=== PATIENT | female | born 1955 | race Caucasian/White ===

== ENCOUNTER → 2018-05-23 14:57 | Outpatient (CLI) | payer BC, SELFPAY ==
--- NOTE | 2018-05-23 15:02 | MM_ITS ---
MM Dig screening mamm BI w/CAD ORDERING PHYSICIAN : Jennie Morris MD PATIENT AGE: 62 years GENDER: Female COMPARISON: April 2016, of April 2015, 2016 also March 20142011 INDICATION: ITS.REASON: SCREENING no hormones no new complaints Previous stereotactic biopsy left breast Family history. Maternal aunt with breast cancer. TECHNIQUE: Standard CC and MLO images were obtained. R2 CAD reviewed. FINDINGS: Generalized fatty replacement. Low-density breast bilaterally with no significant new findings. No dominant mass nor suspicious calcifications either breast. CAD computer review highlights no areas of concern either. . RIGHT BREAST:Stable. No new areas of concern LEFT BREAST:Stable. Subtle density towards superior breast and upper outer quadrant, similar to previous studies dating back to, 2011 2013 . There is been a previous percutaneous biopsy at the left breast with small residual MicroMark or at the deep medial left breast. No new findings here. IMPRESSION: Stable bilateral mammogram with no new areas of concern. Bilateral follow-up in one year recommended BI-RADS Category: 2 Benign Finding(s) RECOMMENDED FOLLOW-UP: 1YR 1 YEAR FOLLOW-UP (A letter has been sent to the patient regarding results of the study.)
== END ==
PROVIDERS: PCP Family Medicine; Visit Provider Family Medicine
DX: Z12.31 Encounter for screening mammogram for malignant neoplasm of breast (principal)
CPT/HCPCS: 77067

== ENCOUNTER → 2019-05-01 14:50 | Outpatient (CLI) | payer MEDICARE, SELFPAY ==
--- NOTE | 2019-05-01 14:55 | MM_ITS ---
PROCEDURE: MM DIG SCREENING MAMM BI W/CAD CLINICAL INDICATION: SCREENING There is a history of breast cancer in the patient's maternal aunt. There has been previous biopsy left breast for benign disease. COMPARISON: [facility] DIG MAMM-SCREEN LAI from 04/12/2016 [facility] DIG MAMM-SCREEN LAI W/CAD from 05/03/2017 [facility] MM Dig screening mamm BI w/CAD from 05/23/2018 TECHNIQUE: Standard CC and MLO images were obtained. R2 CAD reviewed. FINDINGS: Scattered fibroglandular densities are seen in the central portions of both breasts. There is a biopsy clip seen within the central portion left breast. There is a benign-appearing microcalcification right breast. There is no suspicious lesion and no suspicious microcalcifications. IMPRESSION: Fibrofatty parenchyma with no suspicious lesions seen BI-RAD Category: 2 Benign Finding(s) FOLLOW-UP: 1YR 1 Year Follow-up (A letter has been sent to the patient regarding results of the study.) Dictated by: Dr. Lev Loya MD 05/02/2019 10:[address] Lev Loya MD in [place] 05/02/2019 10:16
== END ==
PROVIDERS: PCP Family Medicine; Visit Provider Family Medicine
DX: Z12.31 Encounter for screening mammogram for malignant neoplasm of breast (principal)
CPT/HCPCS: 77067

== ENCOUNTER → 2020-05-15 16:36 | Outpatient (CLI) | payer MEDICARE, SELFPAY ==
--- NOTE | 2020-05-15 16:41 | MM_ITS ---
PROCEDURE: MM DIG SCREENING MAMM BI W/CAD Referring Doctor: Jennie Morris Patient Age:64Y CLINICAL INDICATION: SCREENING 64-year-old. No new complaints. previous percutaneous stereotactic biopsy a left breast. Family history: Maternal aunt with breast cancer COMPARISON: MG [facility] DIG MAMM-SCREEN LAI from 03/15/2013 MG [facility] DIG MAMM-SCREEN LAI from 03/21/2014 MG [facility] DIG MAMM-SCREEN LAI from 04/10/2015 MG [facility] DIG MAMM-SCREEN LAI from 04/12/2016 MG [facility] DIG MAMM-SCREEN LAI W/CAD from 05/03/2017 MG [facility] MM Dig screening mamm BI w/CAD from 05/23/2018 MG MM DIG SCREENING MAMM BI W/CAD from 05/01/2019 TECHNIQUE: Standard CC and MLO images were obtained. R2 CAD reviewed. Bilateral digital breast tomosynthesis included. Additional nipple profile view left breast FINDINGS: Moderate breast density. Areas of mild asymmetry are similar to previous studies with no new suspicious or dominant mass either breast. CAD highlights no areas of significant concern. Bilateral follow-up 1 year recommended Left breast. No new areas of significant concern Metallic marker at the medial breast from previous stereotactic biopsy. . Minor asymmetric areas of density dissipate on the tomosynthesis images and/or appear stable Would recommend and encourage bilateral follow-up in 1 year. Right breast no new areas of significant concern IMPRESSION: No new areas of concern. Moderate density breast with scattered areas of minimal asymmetry of similar to previous studies Previous percutaneous biopsy left breast noted . Recommend and would encourage bilateral follow-up in 1 year. BI-RAD Category: 2 Benign Finding(s) FOLLOW-UP: 1YR 1 Year Follow-up (A letter has been sent to the patient regarding results of the study.) Dictated by: Johnson Stephens MD 05/19/2020 00:00 Johnson Stephens MD in [place] 05/19/2020 00:00
== END ==
PROVIDERS: PCP Family Medicine; Visit Provider Family Medicine
DX: Z12.31 Encounter for screening mammogram for malignant neoplasm of breast (principal)
CPT/HCPCS: 77063; 77067

== ENCOUNTER → 2021-05-20 16:23 | Outpatient (CLI) | payer MEDICARE, SELFPAY ==
--- NOTE | 2021-05-20 16:25 | MM_ITS ---
PROCEDURE INFORMATION: Exam: MG Bilateral Screening 3D Mammography Exam date and time: 05/20/2021 4:25 PM Age: 65 years old Clinical indication: Encounter for screening mammogram for malignant neoplasm of breast . Family history of breast carcinoma. TECHNIQUE: Imaging protocol: Bilateral screening tomosynthesis and 2D mammography including computer-aided detection (CAD) when performed. COMPARISON: 05/15/2020, 05/01/2019, 05/23/2018 FINDINGS: MAMMOGRAPHY: Breast composition: There are scattered areas of fibroglandular density. Mass: No suspicious masses. Architectural distortion: No suspicious distortion. Calcifications: No suspicious calcifications. Asymmetric density: None. Skin thickening: None. Axillary adenopathy: None. IMPRESSION: No mammographic evidence of malignancy. Annual screening is recommended unless otherwise clinically indicated. ASSESSMENT: BI-RADS Category 1: Negative
== END ==
PROVIDERS: PCP Family Medicine; Visit Provider Family Medicine
DX: Z12.31 Encounter for screening mammogram for malignant neoplasm of breast (principal)
CPT/HCPCS: 77063; 77067

== ENCOUNTER → 2021-08-27 14:23 | Outpatient (CLI) | payer MEDICARE, SELFPAY ==
--- NOTE | 2021-08-27 14:28 | XR_ITS ---
FINAL REPORT TECHNIQUE: Chest PA & Lateral CLINICAL HISTORY: POST COVID, soa, smoker FINDINGS: 2 views of the chest were performed. The heart size is normal. The mediastinum is within normal limits. There is a calcified granuloma in the right mid lung. There is no acute cardiopulmonary process. There are no pleural effusions. There is no pneumothorax. The bony thorax appears intact. IMPRESSION: No acute cardiopulmonary process. Reviewed, Interpreted and Dictated by Tapan Hou MD Transcribed by Arnaldo Marshall Authenticated by Tapan Hou MD on 08/27/2021 03:58:43 PM [facility]
== END ==
PROVIDERS: PCP Family Medicine; Visit Provider Family Medicine
DX: U09.9 Post COVID-19 condition, unspecified (principal); R06.02 Shortness of breath; Z72.0 Tobacco use
CPT/HCPCS: 71046

== ENCOUNTER → 2022-05-24 15:53 | Outpatient (CLI) | payer MEDICARE, SELFPAY ==
--- NOTE | 2022-05-24 15:58 | MM_ITS ---
PROCEDURE INFORMATION: Exam: MG Bilateral Screening 3D Mammography Exam date and time: 05/24/2022 3:53 PM Age: 66 years old Clinical indication: Screening examination TECHNIQUE: Imaging protocol: Bilateral Screening tomosynthesis and 2D mammography including computer-aided detection (CAD) when performed. COMPARISON: 1. MG MM DIG SCREENING MAMM BI W/CAD 05/20/2021 4:23 PM 2. MG MM DIG SCREENING MAMM BI W/CAD 05/15/2020 4:51 PM FINDINGS: MAMMOGRAPHY: Breast composition: There are scattered areas of fibroglandular density. Mass: None. Architectural distortion: None. Calcifications: No suspicious calcifications. Asymmetric density: None. Skin thickening: None. Axillary adenopathy: None. IMPRESSION: No mammographic evidence of malignancy. Annual screening is recommended unless otherwise clinically indicated. ASSESSMENT: BI-RADS Category 1: Negative
== END ==
PROVIDERS: PCP Family Medicine; Visit Provider Family Medicine
DX: Z12.31 Encounter for screening mammogram for malignant neoplasm of breast (principal)
CPT/HCPCS: 77063; 77067

== ENCOUNTER 2024-08-22 18:12 | Observation (INO) | payer MEDICARE, SELFPAY ==
[2024-08-22 18:15] VITALS: BP 98/60; PULSE 90; RESP 18; TEMP 36.1; O2SAT 97; BMI 14.9
[2024-08-22 18:23] LABS: Coronavirus 19, PCR Not Detected (NotDetected); Influenza A, PCR Not Detected (NotDetected); Influenza B, PCR Not Detected (NotDetected)
--- NOTE | 2024-08-22 19:02 | XR_ITS ---
PROCEDURE INFORMATION: Exam: XR Complete Acute Abdomen Series Including Chest Exam date and time: 08/22/2024 7:12 PM Age: 69 years old Clinical indication: Abdominal pain; Additional info: Abdominal pain, n/v/d TECHNIQUE: Imaging protocol: Radiologic exam. Complete acute abdomen series, including 2 or more views of the abdomen and a single view chest. COMPARISON: CR XR CHEST 2V 08/27/2021 2:52 PM FINDINGS: Lungs: Emphysematous changes. No acute airspace process. Calcified granuloma the right lung base. Pleural spaces: Normal. No pleural effusions. No pneumothorax. Heart/Mediastinum: Normal. No cardiomegaly. Gastrointestinal tract: Normal. No bowel dilation. Intraperitoneal space: Normal. No free air. Organs: Cholecystectomy clips. Bones/joints: Normal. No acute fracture. Soft tissues: Normal. IMPRESSION: No acute findings.
[2024-08-22] MEDS: ONDANSETRON 4MG ODT 4 MG SL (19:15)
[2024-08-22 19:19] LABS: Basophils % 0.8 % (0.1-2.0); Eosinophils % 0.3 % (0.1-12.0); Hematocrit 43.1 % (37.0-47.0); Hemoglobin 14.1 g/dL (12.2-16.2); Lymphocytes # 0.9 K/mm3 (0.7-4.5); Lymphocytes % 25.4 % (10-50); Mean Corpuscular HGB Conc 32.7 g/dL (31.8-35.4); Mean Corpuscular Hemoglobin 28.7 pg (27.0-31.2); Mean Corpuscular Volume 87.6 fl (81-99); Mean Platelet Volume 10.8 fl (7.4-10.4); Monocytes # 0.7 K/mm3 (0.1-1.0); Monocytes % 18.2 % (1.7-9.3); Platelet Count 170 K/mm3 (142-424); Red Blood Count 4.92 M/mm3 (4.20-5.40); White Blood Count 3.6 K/mm3 (4.8-10.8)
[2024-08-22 19:28] LABS: Albumin Level 4.7 g/dl (3.5-5.0); Chloride 100 mmol/L (98-107); Sodium 137 mmol/L (136-145)
[2024-08-22 19:29] LABS: Potassium 3.7 mmoL/L (3.5-5.1)
[2024-08-22 19:30] LABS: Lipase 192 U/L (23-300)
[2024-08-22 19:31] LABS: Alanine Aminotransferase 29 U/L (12-78); Anion Gap 15.7 mEq/L (5-15); Aspartate Amino Transferase 59 U/L (14-36); Blood Urea Nitrogen 25 mg/dl (7-17); Carbon Dioxide 25 mmol/L (22.0-30.0); Creatinine Clearance Estimated 27 mL/min (50-200); Estimated Glomerular Filt Rate 71 ml/min (>60); GFR (African American) 86 ML/MIN (>60)
[2024-08-22 19:32] LABS: Albumin/Globulin Ratio 1.9 (1.1-1.8); Alkaline Phosphatase 118 U/L (38-126); Bilirubin,Total 0.6 mg/dl (0.2-1.3); Calcium 10.4 mg/dl (8.4-10.2); Globulin 2.5 g/dL (1.3-3.2); Glucose 124 mg/dl (74-100); Total Protein,Serum 7.2 g/dl (6.3-8.2)
[2024-08-22 19:33] VITALS: BP 127/78; PULSE 85; O2SAT 97
[2024-08-22 19:34] LABS: Lactic Acid 2.6 mmol/L (0.7-2.1)
[2024-08-22] MEDS: 0.9 % SODIUM CHLORIDE 1000ML 1,000 ML 999 ML IV (19:49)
--- NOTE | 2024-08-22 20:26 | ED_ITS ---
Discharge Plan Disposition Chief Complaint: Nausea/Vomiting/Diarrhea Referrals Follow up/Referrals: Jennie Morris MD [Primary Care Provider] - See instructions Clinical Impressions Clinical Impression: Gastroenteritis, Adult failure to thrive Instructions Patient Instructions: DI for Diarrhea and Traveler's Diarrhea -- Adult, DI for Diarrhea and Traveler's Diarrhea -- Child, DI for Nausea -- Adult, DI for Nausea -- Child Print Language Print Language: [place] Discharge ED Provider: Franklin Mcpherson General Adult HPI General Chief complaint: Nausea/Vomiting/Diarrhea Stated complaint: weak, nausea,vomiting, diarrhea Time Seen by Provider: 08/22/24 19:23 Mode of Arrival: Wheelchair Source of Information: Patient and Relative Description of Symptoms (Recalled from ER Triage Doc. by RN): pt presents for evaluation of n/v/d x3-4 days. History of Present Illness HPI narrative: Please note that above description of symptoms, in this electronic medical record under categorization of recalled from ER triage doctor by RN are reflective of an initial nursing assessment, however, is not reflective of my full history and physical exam that was personally taken and clarified. Consequentially, this preceding description of symptoms, which may include the patient's categorized chief complaint in the EMR, do not reflect my personal clinical impression, and the ultimate description of history of present illness and patient stated complaints should be deferred to this section of the note. Unless stated otherwise or congruent with this section of the note, additional signs, symptoms, or incongruence should be interpreted as inaccurate with my clinical impression. Related Data Allergies Allergy/AdvReac Type Severity Reaction Status Date / Time No Known Allergies Allergy Verified 08/22/24 18:19 [facility] Disclaimer: The information contained in this section may have been updated after the patient was seen, as this information can be updated by other users. Social History Smoking Status: Current every day smoker alcohol intake: never current occupational status: retired Travel in the last 8 weeks: None ROS Obtained: Yes All systems reviewed & no additional complaints except as documented Physical Exam General General appearance: alert and cachectic Head Head exam: atraumatic and normocephalic Eye Eye exam: Present normal appearance, PERRL and EOMI Neck Neck exam: Present normal inspection, full ROM and trachea midline Respiratory Respiratory exam: Absent respiratory distress, wheezes, stridor, accessory muscle use or prolonged expiratory phase Cardiovascular Cardiovascular exam: Present regular rate, normal rhythm and other (Pulses equal symmetric in upper and lower extremities) Abdominal Exam Abdominal exam: Present soft; Absent distention, tenderness or pulsatile mass Extremities Exam Extremities exam: Absent edema Neurological Exam Neurological exam: Present alert, oriented X3 and CN II-XII intact; Absent motor sensory deficit Skin Skin exam: Present warm and dry; Absent diaphoresis or erythema Medical Decision Making Medical Records Medical records reviewed: Yes I reviewed the patient's medical records. Screening: Per USPSTF and CDC recommendations, given the prevalence of disease in our region, it is our hospital?s policy to screen for HIV and viral Hepatitis for all patients aged 18 and over and those with ongoing risk factors. Suhas Inquiry Pt receiving controlled substance: No Suhas was queried for this patient: No Vital Signs: 08/22/24 18:15 08/22/24 19:33 Temperature 96.9 F L Temperature Source Temporal Artery Scan Pulse Rate 85 Pulse Rate [Right] 90 Respiratory Rate 18 Blood Pressure 127/78 Blood Pressure [Right Arm] 98/60 L Blood Pressure Mean [Right Arm] 72 Blood Pressure Source [Right Arm] Automatic Cuff Blood Pressure Position [Right Arm] Sitting 02 Sat by Pulse Oximetry 97 97 Oxygen Delivery Method Room Air Lab Data Lab Results 08/22/24 18:17: SARS-CoV-2 (PCR) Not detected, Influenza A Untype (PCR) Not detected, Influenza Type B (PCR) Not detected 08/22/24 19:11: WBC 3.6 L, RBC 4.92, Hgb 14.1, Hct 43.1, MCV 87.6, MCH 28.7, MCHC 32.7, RDW 14.0, Plt Count 170, MPV 10.8 H, Neut % (Auto) 55.0, Lymph % (Auto) 25.4, [place] % (Auto) 18.2 H, Eos % (Auto) 0.3, Baso % (Auto) 0.8, Neut # (Auto) 2.0, Lymph # (Auto) 0.9, [place] # (Auto) 0.7, Eos # (Auto) 0.0, Baso # (Auto) 0.0, Sodium 137, Potassium 3.7, Chloride 100, Carbon Dioxide 25, Anion Gap 15.7 H, BUN 25 H, Creatinine 0.80, Estimated Creat Clear 27, Estimated GFR 71, Est GFR ( Amer) 86, Glucose 124 H, Lactate 2.6 H, Calcium 10.4 H, Total Bilirubin 0.6, AST 59 H, ALT 29, Alkaline Phosphatase 118, Total Protein 7.2, Albumin 4.7, Globulin 2.5, Albumin/Globulin Ratio 1.9 H, Lipase 192 08/22/24 19:11 08/22/24 19:11 Orders (Tests/Meds): ED MEDICATIONS Discontinued Medications Generic Name Dose Route Start Last Admin Trade Name Rachel PRN Reason Stop Dose Admin Sodium Chloride 1,000 mls @ 999 mls/hr 08/22/24 19:30 08/22/24 19:49 Sod Chlor 0.9% 1000ml Bag IV 08/22/24 20:30 999 mls/hr .Q1H1M ONE Administration Ondansetron HCl 4 mg 08/22/24 19:05 08/22/24 19:15 Ondansetron 4mg Odt SL 08/22/24 19:06 4 mg ONCE ONE Administration ORDERS Category Date Time Status XR acute abdomen series Stat Exams 08/22/24 19:02 Taken Complete Blood Count Auto Diff Stat Lab 08/22/24 19:11 Completed Comprehensive Metabolic Panel Stat Lab 08/22/24 19:11 Completed Diarrhea 6-11 Panel, Cdiff PCR Stat Lab 08/22/24 20:59 Ordered Lactic Acid Stat Lab 08/22/24 19:11 Completed Lipase Stat Lab 08/22/24 19:11 Completed Rapid PCR Covid and Flu A/B Stat Lab 08/22/24 18:17 Completed Urinalysis and Microscopic Stat Lab 08/22/24 19:03 Ordered Medical Decision Narrative: 69-year-old female history of hypertension, hyperlipidemia, COPD still smoking and not on home oxygen presenting with generalized weakness, vomiting, diarrhea, inability to tolerate p.o. intake. This been going on for for 5 days. Has largely not gotten out of bed other than to go to the restroom and has needed to stabilize herself on furniture and various zapata in order to make it to the bathroom without falling. States that she is so weak that she is largely unable to do anything at home. Vomiting is nonbloody, nonbilious, diarrhea is nonbloody. No fevers or chills or any other systemic signs or symptoms. No other acute complaints. History was obtained via conversation with patient and family. On arrival, patient hemodynamically stable, alert, oriented x4, appropriate, GCS 15, moving all extremities spontaneously, pupils equal and reactive to light. Full physical exam performed and significant for cachectic, chronically ill, but no acute distress. She is hemodynamically stable, nontachycardic. Lungs are clear, cardiac exam without murmurs gallops or rubs and no lower extremity edema. Pulses equal and symmetric in upper and lower extremities. Abdomen is soft, nontender, nondistended, but she states that she does have a deeper tenderness on the left side and left lower quadrant that is intermittent. Differential includes gastritis, gastroenteritis, diverticulitis, urinary tract infection, Isaak, obstruction, partial obstruction, pancreatitis, among others. Patient placed on continuous cardiac monitoring and continuous pulse ox with initial blood pressure 98/60, heart rate 90, saturation 97% on room air. Patient was given fluids and Zofran for symptomatic management and correction of underlying abnormalities. Workup independently interpreted and significant for nonactionable CBC or chemistry other than mildly elevated anion gap and BUN. Lactate mildly elevated 2.6. Lipase negative. CT scan was considered, but not deemed necessary. Patient is nonperitoneal take abdomen, negative workup, I feel lactate is likely secondary to dehydration and decreased p.o. intake. Not deemed necessary for these reasons. Repeat perfusion exam was performed, patient still mentating appropriately, blood pressure significantly improved, still nontachycardic and very clinically well-appearing. Antibiotics were considered, not deemed necessary for this reason. On reevaluation, patient resting comfortably and still at rest. Conversation had with patient and family regarding home-going. They feel uncomfortable sending her home as she lives alone, has been unable to do anything for her cell for the past few days and has largely not eaten or drank. Given patient presentation, workup, history, this most likely represents adult failure to thrive in the setting of acute GI illness. Hospital medicine was contacted and case was discussed at length, patient to be admitted for fluids, nausea meds, physical therapy, etc. Diarrhea panel was sent by request. Hospital Personnel Director disclaimer Much of this encounter note is an electronic infrastructure tech spoken language to printed text. Electronic infrastructure tech of the spoken language may permit errors. Although I have reviewed the note, some errors may still exist. Critical Care Critical Care Time Critical Care Time: No
[2024-08-22 21:23] VITALS: BP 121/68; PULSE 63; RESP 19; TEMP 36.6; O2SAT 93; BMI 12.0
[2024-08-22 22:41] VITALS: BP 132/80; PULSE 69; RESP 20; TEMP 36.8; O2SAT 95
--- NOTE | 2024-08-22 22:42 | PC.NURSE ---
Patient arrived to floor via wheelchair from ED at 22:42.
[2024-08-22 22:44] LABS: Microscopic, Urine URINE MICROSCOPIC (MICROSCOPIC)
[2024-08-22] MEDS: Dex 5% in 0.45% NaCl 1,000 ML 100 ML IV (22:46)
[2024-08-22 22:56] LABS: Appearance,Urine CLEAR (Clear); Bilirubin,Urine Negative (Negative); Blood, Urine Negative (Negative); Color,Urine YELLOW (Yellow); Glucose,Urine (UA) Negative (Negative); Ketones,Urine TRACE (Negative); Leukocyte Esterase,Urine TRACE (Negative); Nitrate,Urine Negative (Negative); PH,Urine 5.5 (5.0-8.5); Protein,Urine 100 (Negative); Urobilinogen,Urine 0.2 EU/dl (0.2)
[2024-08-22 23:11] LABS: Bacteria,Urine 4+ /lpf; Squamous Epithelial Cell,Urine 20-50 #/hpf (0-5); WBC,Urine 20-50 #/hpf (0-3)
[2024-08-22 23:12] LABS: Mucus,Urine 4+ /lpf
[2024-08-22 23:14] LABS: Specific Gravity, Urine >= 1.030 (1.005-1.030)
[2024-08-22 23:18] LABS: Reflex Lactic Add Lactic Reflex
[2024-08-23] MEDS: HYDROCODONE/APAP 5/325 MG TABLET 1 TAB PO (02:16)
--- NOTE | 2024-08-23 03:32 | P.HP_ITS ---
<Statement entered by Beto Lopes MD - 08/23/24 23:20> Rounded on patient after nurse practitioner. Personally examined and interviewed patient. Agree with exam findings and care plan as documented. 69-year-old female who presents with weight loss and abdominal discomfort along with poor appetite. Concern for adult failure to thrive. Case discussed with ER physician, request admission for further management. Medicine admitted for further care. Urine found to be abnormal. Initiated on antibiotics. Therapy evaluating today. Problems addressed as follows: Adult failure to thrive Severe protein calorie malnutrition -PT, OT, nutrition consulted -Will consider CT abdomen pelvis given patient's poor appetite and abdominal discomfort. -Zofran 4 mg IV every 6 hours for nausea Suspected UTI Electrolyte disturbances -Initiate ceftriaxone 1 g daily. Urinalysis grossly abnormal. Repeat CBC, CMP, magnesium ordered for the morning. -Potassium low 3.0, replace per protocol. Hypothyroid: TSH pending. Continue levothyroxine 50 mcg daily Chronic pain in continue 6.5 mg 3 times a day as needed, hydrocodone 1 tab every 8 hours as needed for severe pain Continue omeprazole 40 mg nightly for GERD Full code regular diet History of Present Illness *Admission Date: 08/22/24 *Reason for visit:: Patient has nausea vomiting diarrhea. Now having difficulty ambulating *History of present illness: This 69-year-old lady who is a chronic smoker and been losing weight and now has nausea vomiting and diarrhea at home. She has come to the emergency room with her family because she is so weak she is falling against zapata at home . She sees Dr. Morris who is on [facility] here in [place]. He has started a medication that is also used for breast cancer to stimulate her to eat. Apparently her early weight has been coming down for several months now. He denies any history of cancer but did have a hysterectomy done several decades ago. She has been a long-term smoker most of her life With her decreased ability to walk and ambulate even to get to the bathroom the family has brought her in for failure to thrive. There is nothing that gives me any significant past medical history of her and are hospital database. She is alert oriented in no pain at this point in time. She is able to drink without any signs of choking or difficulty. Question cause of her diarrhea and workup has been started. [facility] Disclaimer: The information contained in this section may have been updated after the patient was seen, as this information can be updated by other users. Medical History FH: cholecystectomy Surgical History H/O: hysterectomy H/O hernia repair Social History Smoking Status: Current every day smoker alcohol intake: never current occupational status: retired Travel in the last 8 weeks: None Have you lived/traveled outside US in past 30 days?: No Contact w/someone who lives/traveled outside US past 30 days?: No Exposure to someone with infectious disease in past 14 days?: No Do you have a fever (greater than 100.4 F or 38 C)?: No Have you tested positive for COVID-19: No Exposed to someone with COVID-19 in past 14 days?: No Do you have a sore throat?: No Do you have a cough?: No Do you have any weakness?: Yes Do you have any diarrhea?: Yes Are you experiencing any unusual bleeding?: No Do you have any muscle aches/pain?: No Do you have any abdominal pain?: Yes Are you experiencing loss of taste or smell?: No Other Medical History Have you received the Flu Vaccine for this season: No Have you received the Pneumonia Vaccine: No Review of Systems Review of Systems Review of systems:: pertinent systems reviewed and negative unless documented below Review of systems (narrative): Patient is not able to care for herself at home Constitutional Constitutional: Reports as per HPI, Reports fatigue, Reports frequent falls, Reports poor appetite, Reports weakness and Reports weight loss Eyes Eyes: Reports as per HPI ENT Ears, Nose, Mouth, and Throat: Reports as per HPI and Reports disequilibrium Comments: Has full dentures *Cardiovascular Cardiovascular: Reports as per HPI and Reports dyspnea on exertion *Respiratory Respiratory: Reports as per HPI and Reports dyspnea on exertion *Gastrointestinal Gastrointestinal: Reports as per HPI, Reports change in bowel habits, Reports change in stool character, Reports diarrhea and Reports loose stools *Genitourinary Genitourinary: Reports as per HPI *Musculoskeletal Musculoskeletal: Reports as per HPI, Reports abnormal gait and Reports muscle weakness Integumentary/Breasts Skin/Breast: Reports dry skin *Neurologic Neurologic: Reports abnormal gait, Reports disequilibrium, Reports frequent falls and Reports weakness Psychiatric Psychiatric: Reports abnormal sleep pattern and Reports change in appetite Endocrine Endocrine: Reports fatigue Hematologic/Lymphatic Hematologic/Lymphatic: Reports as per HPI Allergic/Immunologic Allergic/Immunologic: Reports as per HPI Meds Home Medications and Allergies Home Medications ?Medication ?Instructions ?Recorded ?Confirmed ?Type alprazolam 0.5 mg tablet 0.5 mg PO TID 08/22/24 08/22/24 History cholecalciferol (vitamin D3) 1,250 1,250 mcg PO WEEKLY 08/22/24 08/22/24 History mcg (50,000 unit) capsule hydrocodone 5 mg-acetaminophen 325 1 tab PO Q8 PRN Pain 08/22/24 08/22/24 History mg tablet levothyroxine 50 mcg tablet 30 mcg PO DAILY 08/22/24 08/22/24 History megestrol 20 mg tablet 20 mg PO BID 08/22/24 08/22/24 History metoprolol succinate 25 mg 25 mg PO DAILY 08/22/24 08/22/24 History tablet,extended release 24 hr omeprazole 40 mg capsule,delayed 40 mg PO DAILY 08/22/24 08/22/24 History release promethazine 12.5 mg tablet 12.5 mg PO Q6 PRN . 08/22/24 08/22/24 History simvastatin 20 mg tablet 20 mg PO DAILY 08/22/24 08/22/24 History New Prescriptions to Start Prescriptions: Allergies Allergy/AdvReac Type Severity Reaction Status Date / Time No Known Allergies Allergy Verified 08/22/24 18:19 Exam Data for Last 24 hours Vital signs and Labs for Last 24 Hours: Temp Pulse Resp BP Pulse Ox O2 Del Method 98.2 F 69 20 132/80 93 L Room Air 08/22/24 22:41 08/22/24 22:41 08/22/24 22:41 08/22/24 22:41 08/22/24 21:23 08/23/24 01:00 Laboratory Results - last 24 hr 08/22/24 18:17: SARS-CoV-2 (PCR) Not detected, Influenza A Untype (PCR) Not detected, Influenza Type B (PCR) Not detected 08/22/24 19:11: WBC 3.6 L, RBC 4.92, Hgb 14.1, Hct 43.1, MCV 87.6, MCH 28.7, MCHC 32.7, RDW 14.0, Plt Count 170, MPV 10.8 H, Neut % (Auto) 55.0, Lymph % (Auto) 25.4, [place] % (Auto) 18.2 H, Eos % (Auto) 0.3, Baso % (Auto) 0.8, Neut # (Auto) 2.0, Lymph # (Auto) 0.9, [place] # (Auto) 0.7, Eos # (Auto) 0.0, Baso # (Auto) 0.0, Sodium 137, Potassium 3.7, Chloride 100, Carbon Dioxide 25, Anion Gap 15.7 H, BUN 25 H, Creatinine 0.80, Estimated Creat Clear 27, Estimated GFR 71, Est GFR ( Amer) 86, Glucose 124 H, Lactate 2.6 H, Calcium 10.4 H, Total Bilirubin 0.6, AST 59 H, ALT 29, Alkaline Phosphatase 118, Total Protein 7.2, Albumin 4.7, Globulin 2.5, Albumin/Globulin Ratio 1.9 H, Lipase 192 08/22/24 22:39: Urine Color Yellow, Urine Appearance Clear, Urine pH 5.5, Ur Specific [place] >= 1.030, Urine Protein 100, Urine Glucose (UA) Negative, Urine Ketones Trace, Urine Blood Negative, Urine Nitrate Negative, Urine Bilirubin Negative, Urine Urobilinogen 0.2, Ur Leukocyte Esterase Trace, Urine RBC 10-20, Urine WBC 20-50, Ur Squamous Epith Cells 20-50, Urine Bacteria 4+, Urine Mucus 4+ 08/22/24 23:55: Lactate 1.0 I & O for Last 24 hours: Intake & Output 08/20/24 08/21/24 08/22/24 08/23/24 05:59 05:59 05:59 05:59 Intake Total 400 / 400 Balance 400 / 400 Weight 59 lb 12.8 oz Radiology Reports for the Last 24 Hours: Chest and abdomen no acute findings on x-ray Constitutional Constitutional: no acute distress, thin, chronically ill appearing and cooperative *Routine HEENT Exam Head: Present normocephalic and atraumatic Eye: Present EOMI, PERRL and normal accommodation ENT: Present mucous membranes moist and external ear normal Comments: Has upper and lower dentures *Routine Neck Exam Neck: Present supple, full ROM and trachea midline Routine Chest/Breast/Axilla Exam Comments: No chest wall tenderness no problems with breast no lymphadenopathy found *Routine Respiratory Exam Respiratory: Present decreased breath sounds, rhonchi (Posterior right lung), wheezes (Light wheezing noted at end expiration) and diminished air movement *Routine Cardiovascular Exam Cardiovascular: Present RRR, Normal S1 and Normal S2 Comments: No edema in lower extremities brisk capillary refill to finger nailbeds *Routine Abdominal Exam Abdominal: Present soft Comments: Very flat abdomen no signs of enlarged organs no tenderness on palpation *Routine Rectal Exam Rectal:: deferred *Routine Genitalia Exam Genitalia:: deferred *Routine Extremities Exam Extremities: Present full ROM, pulses intact and normal capillary refill Routine Back/Spine/Pelvis Exam Back/Spine: Present full ROM and CVA tenderness Comments: No signs of abnormal bruising or injury to limbs are back *Routine Skin Exam Skin: Present intact, dry, warm and normal turgor *Routine Neurological Exam Neurological: Present alert, oriented X3, CN II-XII intact, normal reflexes, normal tone, vision grossly intact, hearing grossly intact and normal speech Comments: No neurological deficits found, except when walking patient does not have strength to walk very far has to use wall to support self. Speech is clear and gives a very good history has complete understanding and good hearing of what is being done able to answers questions well and able to ask question Routine Psychiatric Exam Psychiatric: Present normal affect, normal thought process, cooperative and good judgment H&P: Result Impressions 1. Failure to thrive with weight loss COPD with lifelong smoking Imaging and Cardiology CT scan - chest: Additional comments: Images of chest and abdomen done no acute finding Assessment and Plan *Assessment and plan (1) Adult failure to thrive: Status: Acute Category: Medical Code(s): R62.7 - Adult failure to thrive (2) Gastroenteritis: Status: Acute Category: Medical Code(s): K52.9 - Noninfective gastroenteritis and colitis, unspecified (3) Unsteady gait: Status: Acute Category: Medical Code(s): R26.81 - Unsteadiness on feet (4) Weight loss: Status: Acute Category: Medical Code(s): R63.4 - Abnormal weight loss Plan . I will place the patient in the hospital since she is unsteady at home and the family cannot care for her. Start to evaluate her for respiratory or cardiac needs. She does see a local physician and is on a medication to help her stimulate her appetite.. Main concern is she is falling against a wall whenever she gets out of her bed at home being not able to ambulate safely anymore. Weight loss is evident the patient is quite a bit below normal BMI.. Question cardiac in nature, chest and abdominal films showed no obvious masses. The patient has been a smoker for more than 40 years. Now having weight loss. Question to investigate if there is an underlying cancer that has not been found. Patient does not appear to be depressed or anxious that should be affecting her ability or want to eat. But noting this increasing problem of nausea vomiting and diarrhea looking for causes at this time making sure there is no intestinal infection. Will do physical therapy to evaluate her ability to self-care but presently is having failure to thrive.
[2024-08-23 04:00] VITALS: BMI 12.0
--- NOTE | 2024-08-23 06:49 | CA_ITS ---
APPROVED REPORT EXAM: Comprehensive 2D, Doppler, and color-flow Echocardiogram Surgery Attendant: Angelika Perez RDCS Ht: 4 ft 11 in Wt: 59lbs BSA: 1.10 BP: 132/80 mmHg Indications: WEAKNESS,FAILURE TO THRIVE 2D Dimensions LA Volume 52.50 mL LA Volume Index 47.73 mL/m2 (M/F) 16-34 M-Mode Dimensions RVDd 2.10 cm (0.9-2.6) LA Diam 3.48 cm (1.9-4.0) LVDd 4.54 cm (3.5-5.7) LVDs 3.38 cm (3.5-5.7) IVSd 0.53 cm (0.6-1.1) PWd 0.56 cm (0.6-1.1) EF (Teich) 50.40% FS 25.60% EDV (Teich) 94.40 mL TAPSE 1.54 (<1.7) ESV (Teich) 46.80 mL LV Diastology E Decel Time 253 (160-240 msec) E/A Ratio 2.0 Mitral Valve MV E Max Srinivasan. 88.0 (40-130 cm/s) MV A Velocity 44.0 (40-130 cm/s) E/A Ratio 1.98 MV PHT 74.0 ms Tricuspid Valve TR P. Velocity 266.00 cm/s RAP Estimate 10.00 mmHg RVSP 38.30 mmHg Left Ventricle The left ventricle is normal size. The left ventricular systolic function is normal. The left ventricular ejection fraction is within the normal range. There is increased LV wall thickness. There is normal LV segmental wall motion. The left ventricular diastolic function is normal. LVEF is 55%. Right Ventricle The right ventricle is normal size. The right ventricular systolic function is normal. Atria Left atrium is mildly dilated. Right atrium is mildly dilated. There is no Doppler evidence of interatrial shunt. The aortic valve is mildly thickened. Aortic Valve There is no aortic valvular stenosis. No aortic regurgitation is present. Mitral Valve The mitral valve is normal in structure. No evidence of mitral valve stenosis. Trace mitral regurgitation. Tricuspid Valve Tricuspid valve is grossly normal in structure and function. Mild tricuspid regurgitation. RVSP is 30-35 mmHg. Pulmonic Valve The pulmonary valve is normal in structure. Trace pulmonic regurgitation. Great Vessels The aortic root is normal in size. IVC is normal in size and collapses >50% with inspiration. Pericardium There is no pericardial effusion. Other Information Study Quality: Fair Conclusion Normal biventricular systolic function. Mild TR. RVSP 30-35 mmHg. Electronically signed by : Nguyen Benitez MD 08/23/2024 12:05:00
--- NOTE | 2024-08-23 06:52 | ECG_ITS ---
APPROVED REPORT Exam: Resting ECG HR:42 bpm ECG Measurements Heart Rate 42 AXES GA 140 P 83 QRSd 92 QRS 79 QT 449 T 89 QTc 390 Conclusion SINUS BRADYCARDIA LOW QRS VOLTAGE IN PRECORDIAL LEADS [QRS DEFLECTION < 1.0 mV IN CHEST LEADS] BORDERLINE ECG UNCONFIRMED REPORT Electronically signed by : Shyam Priest MD 08/24/2024 08:51:28
[2024-08-23 07:33] LABS: Basophils % 0.4 % (0.1-2.0); Eosinophils % 0.9 % (0.1-12.0); Hematocrit 33.3 % (37.0-47.0); Lymphocytes # 1.2 K/mm3 (0.7-4.5); Lymphocytes % 52.6 % (10-50); Mean Corpuscular HGB Conc 32.7 g/dL (31.8-35.4); Mean Corpuscular Hemoglobin 28.8 pg (27.0-31.2); Mean Corpuscular Volume 87.9 fl (81-99); Mean Platelet Volume 11.1 fl (7.4-10.4); Monocytes # 0.4 K/mm3 (0.1-1.0); Monocytes % 17.8 % (1.7-9.3); Neutrophils # 0.6 K/mm3 (1.8-7.8); Neutrophils % 27.9 % (37.0-80.0); Platelet Count 120 K/mm3 (142-424); Red Blood Count 3.79 M/mm3 (4.20-5.40); Red Cell Distribution Width 13.9 % (11.5-17.5); White Blood Count 2.3 K/mm3 (4.8-10.8)
[2024-08-23 07:40] LABS: Hemoglobin 10.8 g/dL (12.2-16.2); MANUAL DIFFERENTIAL MANUAL DIFFERENTIAL (MANUAL DIFF)
[2024-08-23 07:55] LABS: Alanine Aminotransferase 22 U/L (12-78); Albumin Level 3.2 g/dl (3.5-5.0); Albumin/Globulin Ratio 1.6 (1.1-1.8); Alkaline Phosphatase 69 U/L (38-126); Aspartate Amino Transferase 42 U/L (14-36); Bilirubin,Total 0.3 mg/dl (0.2-1.3); Blood Urea Nitrogen 17 mg/dl (7-17); Calcium 9.1 mg/dl (8.4-10.2); Carbon Dioxide 27 mmol/L (22.0-30.0); Chloride 105 mmol/L (98-107); Chol/HDL Ratio 4.1 (1-3.5); Cholesterol 138 mg/dl (140-200); Creatinine Clearance Estimated 22 mL/min (50-200); Estimated Glomerular Filt Rate 122 ml/min (>60); GFR (African American) 147 ML/MIN (>60); Glucose 85 mg/dl (74-100); HDL Cholesterol 34 mg/dl (40-60); Phosphorous 2.7 mg/dl (2.5-4.5); Sodium 132 mmol/L (136-145); Total Protein,Serum 5.2 g/dl (6.3-8.2); Triglycerides 113 mg/dl (30-150); VLDL Cholesterol 23 mg/dL (0-40)
[2024-08-23 08:00] VITALS: BP 100/47; BP 102/55; BP 104/57; PULSE 50; PULSE 51
[2024-08-23 08:05] LABS: Direct LDL Cholesterol 66.74 mg/dL (100-129)
[2024-08-23 08:58] LABS: Thyroid Stimulating Hormone 2.69 uIU/mL (0.465-4.68)
[2024-08-23 08:59] LABS: Lymphocytes % 50 % (10-50); Monocytes % 10 % (2-9); Neutrophils % 40 % (42-76); Platelet Estimate Slight Decrease; RBC Morphology Normal; Total Cells Counted 100
[2024-08-23] MEDS: Dex 5% in 0.45% NaCl 1,000 ML 100 ML IV ×2 (09:02→21:18)
[2024-08-23] MEDS: LEVOTHYROXINE 50MCG (0.05MG) TAB 50 MCG PO (09:03)
[2024-08-23] MEDS: CEFTRIAXONE SODIUM 1 GM in 0.9 % SODIUM CHLORIDE 50 ML IV (09:03)
[2024-08-23] MEDS: MEGESTROL ACETATE 40MG TABLET 20 MG PO ×2 (09:03→20:12)
[2024-08-23] MEDS: FAMOTIDINE 20MG TABLET 20 MG PO ×2 (09:03→20:12)
[2024-08-23] MEDS: METOPROLOL SUCCINATE XL 25MG TABLET 25 MG PO (09:03)
[2024-08-23] MEDS: ENOXAPARIN 40MG/0.4ML SYRINGE 40 MG SUBCUT (09:03)
[2024-08-23] MEDS: ONDANSETRON 4MG/2ML VIAL 4 MG IV (09:04)
--- NOTE | 2024-08-23 09:20 | HMH.PHAINT1 ---
Pharmacy Intervention Comments: HOME MEDICATION LIST VERIFIED USING LIST FROM OUTPATIENT PHARMACY
[2024-08-23 09:38] VITALS: RESP 17; TEMP 36.4; O2SAT 92
--- NOTE | 2024-08-23 09:53 | CT_ITS ---
FINAL REPORT TECHNIQUE: Noncontrast exam This study was performed with techniques to keep radiation doses as low as reasonably achievable, (ALARA). Individualized dose reduction techniques using automated exposure control or adjustment of mA and/or kV according to the patient''s size were employed. CLINICAL HISTORY: weigth loss, nausea FINDINGS: Abdomen: There is mild atelectasis or scar in the left lung base. Liver, spleen, pancreas and adrenal glands have a normal CT appearance in their limited unenhanced state. Patient is status postcholecystectomy. There is advanced calcified plaque disease of the abdominal aorta. There is mild gastric distention with fluid. No small or large bowel distention identified. The kidneys show no stone disease or obstruction. No obvious renal mass is present. No ureteral stones are present. Pelvis: There is no evidence of appendicitis. There is mild sigmoid diverticulosis without evidence of diverticulitis. No distal ureteral stones are seen. Bladder is unremarkable. No fluid collection or adenopathy is seen. IMPRESSION: No evidence of upper urinary tract stone disease or obstruction Distention without bowel obstruction. Reviewed, Interpreted and Dictated by Christina Kelley MD Transcribed by Christine Castro Authenticated and [facility]
--- NOTE | 2024-08-23 10:26 | HMH.PTEV ---
Physical Therapy Evaluation Rehab PT IP Evaluation Start: 08/23/24 03:47 Freq: ONCE Status: Active Protocol: Document 08/23/24 09:05 PHU (Rec: 08/23/24 10:26 PHU [id number]) Subjective/History History History 69-year-old lady who is a chronic smoker and been losing weight and now has nausea vomiting and diarrhea at home. She has come to the emergency room with her family because she is so weak she is falling against zapata at home . She sees Dr. Morris who is on [facility] here in [place]. He has started a medication that is also used for breast cancer to stimulate her to eat. She reports she lives with her son, 1 JACOBO the home, and she is generally independent with all mobility without AD at baseline. Subjective Subjective Pt reports nausea this am, but otherwise feels ok. Agrees to OOB mobility assessment at this time. [facility] How much help from another person do you currently need... Turning from your back to your side None while in a flat bed without using bedrails? Moving from lying on back to sitting on None the side of a flat bed without using bedrails? Moving to and from a bed to a chair ( None including a wheelchair)? Standing up from a chair using your arms None ? (e.g., wheelchair, bedside chair) Walking in hospital room? None Climbing 3-5 steps with a railing? None Mobility Score 24 Mobility Level [facility] Mobility Calculator Mobility 8 Walk 250 feet or more Rehab PT IP Eval Objective Appearance Patient Behavior Appropriate Patient Orientation Person,Place,Time Difficulty following instructions none Speech Pattern Clear Ambulation Patient Able to Ambulate Yes Ambulation Observation IP General Gait Pattern Observation No Deviations/Normal Ambulation Distance (feet) 200 Ambulation Assistive Device None Ambulation Ability Independent Balance Ability to Arise Able, w/o using arms Sitting Balance Steady, safe Standing Balance Narrow stance w/o support Dynamic Sitting Balance Ability Good Dynamic Standing Balance Ability Good Transfers Bed Transfer Ability Independent Chair Transfer Ability Independent Sit to Stand Bed Transfer Ability Independent Sit to Stand Chair Transfer Ability Independent ROM All Extremities PT ROM Status WFL MMT All Extremities PT MMT WFL Rehab PT IP prob,goals,plan Problems Date of Evaluation: 08/23/24 Discharge Plan PT Discharge Plan Pt is currently appropriate to return home once medically stable for d/c. No current inpatient acute rehab needs. Eval Complexity Eval Charge Codes 28878 - High Complexity PHYSICIAN CERTIFICATION: I certify the specified therapy services for Adriana Will are required, authorized, and reviewed every 30 days.
[2024-08-23 10:42] VITALS: BMI 12.0
[2024-08-23] MEDS: POTASSIUM CHLORIDE 20MEQ TAB 40 MEQ PO ×2 (11:34→13:14)
--- NOTE | 2024-08-23 13:45 | SW/DCPLANNER ---
Per PT no needs at this time.
[2024-08-23 16:00] VITALS: BP 75/54; PULSE 52; RESP 17; O2SAT 94
[2024-08-23] MEDS: METOCLOPRAMIDE HCL 10MG/2ML VIAL 5 MG IVP (17:10)
--- NOTE | 2024-08-23 17:56 | PC.NURSE ---
a&ox4. resting supine in bed at this time. pt ambulated independently in the halls today with PT and has ambulated independently to the br this shift. pt has been unable to produce a bm this shift, but is aware of need for stool sample. hat placed in the toilet for collection. tolerating ra. cardiology and nutrition consults this shift. pt has been hypotensive this shift, but is asymptomatic. tolerating ra. negative orthostatics this morning. pt has complained of nausea this shift and has been treated per aug. no complaints of pain. no needs at this time. call light within reach.
--- NOTE | 2024-08-23 19:04 | P.PN_ITS ---
Subjective *Date: 08/23/24 *Time: 23:12 Interval history: Complaining of some mild nausea. Afebrile. Hemodynamically stable. Denies any chest pain. Stable on room air. Is noted to have some neutropenia on exam this morning. Medical Exam Vital signs and Labs for Last 24 Hours: Vital Signs Temp Pulse Pulse Pulse Pulse Pulse Resp 08/23/24 18:55 08/23/24 17:00 08/23/24 16:00 52 L 17 08/23/24 15:00 08/23/24 13:00 08/23/24 11:00 08/23/24 09:38 97.6 F 17 08/23/24 09:33 08/23/24 09:00 08/23/24 08:00 51 L 50 L 50 L 08/23/24 06:40 08/23/24 05:00 08/23/24 03:00 08/23/24 01:00 08/22/24 23:00 08/22/24 22:41 98.2 F 69 20 08/22/24 21:23 97.9 F 63 19 08/22/24 21:14 08/22/24 19:33 85 BP BP BP BP BP Pulse Ox O2 Del Method 08/23/24 18:55 Room Air 08/23/24 17:00 Room Air 08/23/24 16:00 75/54 L 94 L Room Air 08/23/24 15:00 Room Air 08/23/24 13:00 Room Air 08/23/24 11:00 Room Air 08/23/24 09:38 92 L Room Air 08/23/24 09:33 Room Air 08/23/24 09:00 Room Air 08/23/24 08:00 100/47 L 102/55 L 104/57 L 08/23/24 06:40 Room Air 08/23/24 05:00 Room Air 08/23/24 03:00 Room Air 08/23/24 01:00 Room Air 08/22/24 23:00 Room Air 08/22/24 22:41 132/80 Room Air 08/22/24 21:23 121/68 93 L Room Air 08/22/24 21:14 Room Air 08/22/24 19:33 127/78 97 Intake and Output 08/23/24 08/23/24 08/23/24 07:59 15:59 23:59 Intake Total 400 / 1030 510 / 1030 120 / 1030 Output Total 0 / 0 0 / 0 Balance 400 / 1030 510 / 1030 120 / 1030 Intake: Intake, Oral Amount 510 / 630 120 / 630 Intake, Total IV Amount 400 / 400 Dex 5% in 0.45% NaCl 1,000 ml @ 400 / 400 100 mls/hr IV .Q10H [facility] Rx#: [id number] Output: Output, Urine Amount 0 / 0 0 / 0 Other: Number of Unmeasured Voids 1 1 Number of Bowel Movements 1 Weight 27.125 kg 27.15 kg Patient Weight 08/23/24 23:59 Weight 27.15 kg Laboratory Results - last 24 hr 08/22/24 19:11: WBC 3.6 L, RBC 4.92, Hgb 14.1, Hct 43.1, MCV 87.6, MCH 28.7, MCHC 32.7, RDW 14.0, Plt Count 170, MPV 10.8 H, Neut % (Auto) 55.0, Lymph % (Auto) 25.4, [place] % (Auto) 18.2 H, Eos % (Auto) 0.3, Baso % (Auto) 0.8, Neut # (Auto) 2.0, Lymph # (Auto) 0.9, [place] # (Auto) 0.7, Eos # (Auto) 0.0, Baso # (Auto) 0.0, Sodium 137, Potassium 3.7, Chloride 100, Carbon Dioxide 25, Anion Gap 15.7 H, BUN 25 H, Creatinine 0.80, Estimated Creat Clear 27, Estimated GFR 71, Est GFR ( Amer) 86, Glucose 124 H, Lactate 2.6 H, Calcium 10.4 H, Total Bilirubin 0.6, AST 59 H, ALT 29, Alkaline Phosphatase 118, Total Protein 7.2, Albumin 4.7, Globulin 2.5, Albumin/Globulin Ratio 1.9 H, Lipase 192 08/22/24 22:39: Urine Color Yellow, Urine Appearance Clear, Urine pH 5.5, Ur Specific [place] >= 1.030, Urine Protein 100, Urine Glucose (UA) Negative, Urine Ketones Trace, Urine Blood Negative, Urine Nitrate Negative, Urine Bilirubin Negative, Urine Urobilinogen 0.2, Ur Leukocyte Esterase Trace, Urine RBC 10-20, Urine WBC 20-50, Ur Squamous Epith Cells 20-50, Urine Bacteria 4+, Urine Mucus 4+ 08/22/24 23:55: Lactate 1.0 08/23/24 06:50: WBC 2.3 L D, RBC 3.79 L, Hgb 10.8 L D, Hct 33.3 L, MCV 87.9, MCH 28.8, MCHC 32.7, RDW 13.9, Plt Count 120 L D, MPV 11.1 H, Neut % (Auto) 27.9 L, Lymph % (Auto) 52.6 H, [place] % (Auto) 17.8 H, Eos % (Auto) 0.9, Baso % (Auto) 0.4, Neut # (Auto) 0.6 L*, Lymph # (Auto) 1.2, [place] # (Auto) 0.4, Eos # (Auto) 0.0, Baso # (Auto) 0.0, Total Counted 100, Neutrophils % (Manual) 40 L, Lymphocytes % (Manual) 50, Monocytes % (Manual) 10 H, Platelet Estimate Slight decrease, RBC Morphology Normal, Sodium 132 L, Potassium 3.0 L, Chloride 105, Carbon Dioxide 27, Anion Gap 3.0 L, BUN 17 D, Creatinine 0.50 L D, Estimated Creat Clear 22, Estimated GFR 122, Est GFR ( Amer) 147 D, Glucose 85 D, Lactate 1.0, Calcium 9.1, Phosphorus 2.7, Magnesium 2.0, Total Bilirubin 0.3, AST 42 H D, ALT 22, Alkaline Phosphatase 69, Total Protein 5.2 L D, Albumin 3.2 L D, Globulin 2.0, Albumin/Globulin Ratio 1.6, Triglycerides 113, Cholesterol 138 L, LDL Cholesterol Direct 66.74 L, VLDL Cholesterol 23, HDL Cholesterol 34 L , Cholesterol/HDL Ratio 4.1 H, TSH 2.69 I & O for Labs for Last 24 Hours: Intake & Output 08/20/24 08/21/24 08/22/24 08/23/24 23:59 23:59 23:59 23:59 Intake Total 1030 / 1030 Output Total 0 / 0 Balance 1030 / 1030 Weight 27.125 kg 27.15 kg Constitutional: Present no acute distress, cachectic, chronically ill appearing and cooperative Head: Present atraumatic and normocephalic ENT: Present normal exam Neck: Present normal inspection Respiratory: Present normal respiratory effort; Absent rhonchi, wheezes or crackles Cardiac: Present Reg Rate and Rhythm GI: Present soft and normal bowel sounds; Absent distention or tenderness Extremities: Present normal inspection and full ROM Skin: Present intact; Absent erythema Neuro: Present Grossly Intact, alert, awake, oriented x 3 and moves all extremities Assessment and Plan *Assessment and plan (1) Adult failure to thrive: Status: Acute Category: Medical Code(s): R62.7 - Adult failure to thrive (2) Gastroenteritis: Status: Acute Category: Medical Code(s): K52.9 - Noninfective gastroenteritis and colitis, unspecified (3) Unsteady gait: Status: Acute Category: Medical Code(s): R26.81 - Unsteadiness on feet (4) Weight loss: Status: Acute Category: Medical Code(s): R63.4 - Abnormal weight loss (5) Severe protein-calorie malnutrition: Status: Acute Category: Medical Code(s): E43 - Unspecified severe protein-calorie malnutrition (6) UTI (urinary tract infection): Status: Acute Category: Medical Code(s): N39.0 - Urinary tract infection, site not specified Plan 69-year-old female who presents with weight loss and abdominal discomfort along with poor appetite. Concern for adult failure to thrive. Case discussed with ER physician, request admission for further management. Medicine admitted for further care. Urine found to be abnormal. Initiated on antibiotics. Therapy evaluating today. Problems addressed as follows: Adult failure to thrive Severe protein calorie malnutrition -PT, OT, nutrition consulted and evaluated today. Patient baseline level of function. Stable to discharge home. Has had documented weight loss and malnutrition. Recommend regular diet with supplementation. -CT abdomen pelvis obtained, no lymphadenopathy, has fluid-filled stomach but no significant constipation or liver abnormalities appreciated on CT per my review. No gross abnormalities in her abdomen. -Having some nausea, continue Zofran every 6 hours as needed 4 mg IV. Will initiate Reglan 5 mg every 6 hours as needed as a promotility and for nausea Suspected UTI Electrolyte disturbances -White count low at 2.3, neutrophil count of 600. Initiated on empiric antibiotics with ceftriaxone 1 g daily. Sodium low at 132, potassium 3.0, creatinine 0.5. Repeat CBC, CMP, magnesium ordered for the morning. -Urine grossly abnormal with trace ketones, trace leuk esterase, 20-50 white count, 4+ bacteria. Negative nitrate. Urine culture pending - replacing electrolytes per protocol Hypothyroid: TSH 2.5, continue levothyroxine 50 mcg daily Chronic pain in continue 6.5 mg 3 times a day as needed, hydrocodone 1 tab every 8 hours as needed for severe pain Continue omeprazole 40 mg nightly for GERD Full code Dispo planning pending therapy recs and case management support anita to evaluate her ability to self-care but presently is having failure to thrive.
[2024-08-23 20:00] VITALS: BP 100/51; PULSE 50; RESP 16; TEMP 36.6; O2SAT 95
[2024-08-23] MEDS: PANTOPRAZOLE 40MG TABLET 40 MG PO (20:12)
[2024-08-24] VITALS: BP 123/59; PULSE 45; RESP 16; TEMP 36.7; O2SAT 94
[2024-08-24 00:34] LABS: Adenovirus F 40/41, stool Not Detected (NotDetected); Astrovirus Not Detected (NotDetected); Campylobacter Not Detected (NotDetected); Clostridium Difficile A/B, PCR Not Detected (NotDetected); Cryptosporidium Not Detected (NotDetected); Cyclospora Cayetanesis Not Detected (NotDetected); Entamoeba histolytica Not Detected (NotDetected); Enteroaggregative E coli Not Detected (NotDetected); Enteropathogenic E coli Not Detected (NotDetected); Enterotoxigenic E coli Not Detected (NotDetected); Giardia lamblia Not Detected (NotDetected); Norovirus Not Detected (NotDetected); Plesimonas Shigalloides, PCR Not Detected (NotDetected); Rotavirus A Not Detected (NotDetected); Salmonella, PCR Not Detected (NotDetected); Sapovirus Not Detected (NotDetected); Shiga-like toxin E coli Not Detected (NotDetected); Shigella Enterovasive E coli Not Detected (NotDetected); Vibrio Cholerae Not Detected (NotDetected); Vibrio, PCR Not Detected (NotDetected); Yersinia Entercolitica, PCR Not Detected (NotDetected)
[2024-08-24 04:00] VITALS: BP 103/58; PULSE 55; RESP 16; TEMP 36.8; O2SAT 93; BMI 14.6
[2024-08-24] MEDS: HYDROCODONE/APAP 5/325 MG TABLET 1 TAB PO (04:29)
--- NOTE | 2024-08-24 05:13 | PC.NURSE ---
Pt A&OX4 and has tolerated room air. Stool sample sent down and came back negative. She has ambulated to the bathroom with standby assist. She has been received IV fluids throughout the shift. She did complain of left leg pain and was medicated per MAR. No other complaints at this time, call light within reach.
[2024-08-24] MEDS: Dex 5% in 0.45% NaCl 1,000 ML 100 ML IV (06:25)
[2024-08-24 06:26] LABS: Basophils % 0.7 % (0.1-2.0); Eosinophils % 1.5 % (0.1-12.0); Hematocrit 31.5 % (37.0-47.0); Hemoglobin 10.3 g/dL (12.2-16.2); Lymphocytes # 1.3 K/mm3 (0.7-4.5); Lymphocytes % 47.8 % (10-50); Mean Corpuscular HGB Conc 32.7 g/dL (31.8-35.4); Mean Corpuscular Hemoglobin 28.7 pg (27.0-31.2); Mean Corpuscular Volume 87.7 fl (81-99); Mean Platelet Volume 10.8 fl (7.4-10.4); Monocytes # 0.4 K/mm3 (0.1-1.0); Monocytes % 14.9 % (1.7-9.3); Neutrophils # 0.9 K/mm3 (1.8-7.8); Neutrophils % 34.7 % (37.0-80.0); Platelet Count 120 K/mm3 (142-424); Red Blood Count 3.59 M/mm3 (4.20-5.40); Red Cell Distribution Width 13.7 % (11.5-17.5); White Blood Count 2.7 K/mm3 (4.8-10.8)
[2024-08-24] MEDS: LEVOTHYROXINE 50MCG (0.05MG) TAB 50 MCG PO (06:26)
[2024-08-24 07:07] LABS: Alanine Aminotransferase 19 U/L (12-78); Albumin Level 2.9 g/dl (3.5-5.0); Albumin/Globulin Ratio 1.4 (1.1-1.8); Alkaline Phosphatase 60 U/L (38-126); Aspartate Amino Transferase 34 U/L (14-36); Bilirubin,Total 0.2 mg/dl (0.2-1.3); Blood Urea Nitrogen 5 mg/dl (7-17); Calcium 8.5 mg/dl (8.4-10.2); Carbon Dioxide 26 mmol/L (22.0-30.0); Chloride 109 mmol/L (98-107); Creatinine Clearance Estimated 27 mL/min (50-200); Estimated Glomerular Filt Rate 122 ml/min (>60); GFR (African American) 147 ML/MIN (>60); Globulin 2.1 g/dL (1.3-3.2); Glucose 85 mg/dl (74-100); Magnesium 1.7 mg/dl (1.6-2.3); Sodium 137 mmol/L (136-145)
[2024-08-24 08:00] VITALS: BP 99/48; PULSE 50; RESP 18; TEMP 36.4; O2SAT 92
[2024-08-24] MEDS: ENOXAPARIN 30MG/0.3ML SYRINGE 30 MG SUBCUT (08:21)
[2024-08-24] MEDS: DOCUSATE SODIUM 100 MG CAPSULE PO (08:22)
[2024-08-24] MEDS: MEGESTROL ACETATE 40MG TABLET 20 MG PO (08:23)
[2024-08-24] MEDS: ONDANSETRON 4MG/2ML VIAL 4 MG IV (08:23)
[2024-08-24] MEDS: CEFTRIAXONE SODIUM 1 GM in 0.9 % SODIUM CHLORIDE 50 ML IV (08:23)
--- NOTE | 2024-08-24 10:27 | HMH.OTEV ---
OT Inpatient Evaluation Rehab OT IP Evaluation Start: 08/23/24 07:30 Freq: ONCE Status: Active Protocol: Document 08/24/24 10:22 [facility] (Rec: 08/24/24 10:26 [facility] [id number]) Rehab OT IP Assessment Subjective History Pt oriented x 3 on arrival. Pt agreeable to engage in therapy evaluation. Pt admitted on 08/22/24 due to failure to thrive and nausea/ vomiting. History and physical: This 69-year-old lady who is a chronic smoker and been losing weight and now has nausea vomiting and diarrhea at home. She has come to the emergency room with her family because she is so weak she is falling against zapata at home . She sees Dr. Morris who is on [facility] here in [place]. He has started a medication that is also used for breast cancer to stimulate her to eat. Apparently her early weight has been coming down for several months now. He denies any history of cancer but did have a hysterectomy done several decades ago. She has been a long-term smoker most of her life With her decreased ability to walk and ambulate even to get to the bathroom the family has brought her in for failure to thrive. There is nothing that gives me any significant past medical history of her and are hospital database. She is alert oriented in no pain at this point in time. She is able to drink without any signs of choking or difficulty. Question cause of her diarrhea and workup has been started. Subjective Prior to being in the hospital , pt lived at home with her son. Pt claims normally she is independent with all ADLs and IADLs. Pt does not require any type of AE during functional transfers. Pt also still drove. Objective Patient Orientation Person,Place,Birthday Right Upper Extremity Gross ROM WFL Left Upper Extremity Gross ROM WFL Bed Mobility bed mobility-scooting,bed mobility - supine/sit,bed mobility - rolling Assist Level Independent Transfer Training Sit/Stand Transfer Assist Level Supervision/Stand by Chair Transfer Ability Supervision/Stand by Chair Transfer Technique Sit to/from Ambulatory Lower Body Dressing Ability Standby Assistance Performing Toilet Hygiene Ability Standby Assistance Overall Commode/Toilet Transfer Ability Standby Assistance Commode/Toilet Transfer Technique Sit to/from Ambulatory Rehab OT IP prob,goals,plan Problems Date of Evaluation: 08/24/24 Rehab Potential Rehab Potential Innapropriate for Skilled Therapy Discharge Plan OT Discharge Plan Pt appears to be at her baseline with functional transfers and ADL independence . Pt can return home once she is medically stable per physician. Eval Complexity Eval Charge Codes 99333 - Low Complexity PHYSICIAN CERTIFICATION: I certify the specified therapy services for Adriana Will are required, authorized, and reviewed every 30 days.
--- NOTE | 2024-08-24 11:00 | EXP.DC.SUM ---
General Admission date:: 08/22/24 Discharge date: 08/24/24 HPI HPI HPI: This 69-year-old lady who is a chronic smoker and been losing weight and now has nausea vomiting and diarrhea at home. She has come to the emergency room with her family because she is so weak she is falling against zapata at home . She sees Dr. Morris who is on [facility] here in [place]. He has started a medication that is also used for breast cancer to stimulate her to eat. Apparently her early weight has been coming down for several months now. He denies any history of cancer but did have a hysterectomy done several decades ago. She has been a long-term smoker most of her life With her decreased ability to walk and ambulate even to get to the bathroom the family has brought her in for failure to thrive. There is nothing that gives me any significant past medical history of her and are hospital database. She is alert oriented in no pain at this point in time. She is able to drink without any signs of choking or difficulty. Question cause of her diarrhea and workup has been started. Hospital Course Hospital Course Hospital Course: 69-year-old female who presents with weight loss and abdominal discomfort along with poor appetite. Concern for adult failure to thrive. Case discussed with ER physician, request admission for further management. Medicine admitted for further care. Urine found to be abnormal. Initiated on antibiotics. Therapy evaluated. At baseline level of function. Stable to discharge home. Transition to oral antibiotics. Will discharge home with close follow-up with PCP. Would benefit from further workup of her abdomen such as referral to GI or surgery for possible EGD if does not respond to PPIs appropriately. Problems addressed as follows: Adult failure to thrive Severe protein calorie malnutrition -PT, OT, nutrition consulted and evaluated during admission. Patient deemed at baseline level of function. Tolerated p.o. intake during admission and had bowel movements. CT of abdomen and pelvis was obtained that showed no lymphadenopathy, had fluid-filled stomach but no significant constipation or liver abnormalities appreciated on CT. Initiated on antiemetics including Reglan at discharge. Would benefit from follow-up with GI or surgery pending discussion with patient's primary care to consider EGD if does not have improvement in her nausea with antiemetics and PPI. Suspected UTI Electrolyte disturbances -White count low at 2.3, neutrophil count of 600. Initiated on empiric antibiotics with ceftriaxone 1 g daily. Improvement in electrolytes during admission. Sodium normalized. Urine grossly abnormal with trace ketones, trace leuk esterase, 20-50 white count, 4+ bacteria. Negative nitrate. Urine culture with multiple bacteria. Resulted after discharge. Recommend completing antibiotics as prescribed however. Hypothyroid: TSH 2.5, continue levothyroxine 50 mcg daily Chronic pain in continue hydrocodone 1 tab every 8 hours as needed for severe pain Continue omeprazole 40 mg nightly for GERD Exam Data for Last 24 hours Vital signs and Labs for Last 24 Hours: Temp Pulse Resp BP Pulse Ox O2 Del Method 97.6 F 50 L 18 99/48 L 92 L Room Air 08/24/24 08:00 08/24/24 08:00 08/24/24 08:00 08/24/24 08:00 08/24/24 08:00 08/24/24 09:00 Laboratory Results - last 24 hr 08/24/24 00:24: Stl Aeromonas (PCR) Not detected, Stl C. cayetanensis PCR Not detected, Stool Rotavirus (PCR) Not detected, Stl Adenov F 40/41 PCR Not detected, Stool Astrovirus (PCR) Not detected, Stool Campylobacter PCR Not detected, Stl C.difficile Tox PCR Not detected, Stool Cryptosporidium PCR Not detected, Stl E.coli Shiga Tox PCR Not detected, Stool E coli O157 PCR Not detected, Stl Enterotoxigenic E PCR Not detected, Stool EPEC (PCR) Not detected, Stool EAEC (PCR) Not detected, Stl E. histolytica PCR Not detected, Stool Giardia Lamblia PCR Not detected, Stool Salmonella PCR Not detected, Stool Sapovirus (PCR) Not detected, Stl P. shigelloides PCR Not detected, Stl Shigella/EIEC PCR Not detected, St Y.enterocolitica PCR Not detected, Stool Vibrio (PCR) Not detected, Stl Vibrio cholerae PCR Not detected, Stl Norovirus GI/GII PCR Not detected 08/24/24 06:00: WBC 2.7 L, RBC 3.59 L, Hgb 10.3 L, Hct 31.5 L, MCV 87.7, MCH 28.7, MCHC 32.7, RDW 13.7, Plt Count 120 L, MPV 10.8 H, Neut % (Auto) 34.7 L, Lymph % (Auto) 47.8, [place] % (Auto) 14.9 H, Eos % (Auto) 1.5, Baso % (Auto) 0.7, Neut # (Auto) 0.9 L*, Lymph # (Auto) 1.3, [place] # (Auto) 0.4, Eos # (Auto) 0.0, Baso # (Auto) 0.0, Sodium 137, Potassium 4.0 D, Chloride 109 H, Carbon Dioxide 26, Anion Gap 6.0, BUN 5 L D, Creatinine 0.50 L, Estimated Creat Clear 27, Estimated GFR 122, Est GFR ( Amer) 147, Glucose 85, Calcium 8.5, Magnesium 1.7 D, Total Bilirubin 0.2, AST 34, ALT 19, Alkaline Phosphatase 60, Total Protein 5.0 L, Albumin 2.9 L, Globulin 2.1, Albumin/Globulin Ratio 1.4 I & O for Last 24 hours: Intake & Output 08/21/24 08/22/24 08/23/24 08/24/24 23:59 23:59 23:59 23:59 Intake Total 1030 / 1830 800 / 800 Output Total 0 / 0 0 / 0 Balance 1030 / 1830 800 / 800 Weight 27.125 kg 27.15 kg 33.022 kg Microbiology Reports for the Last 24 Hours: Microbiology 08/22/24 22:39 Urine,Clean Catch Urine Culture - Preliminary Constitutional Constitutional: no acute distress, cachectic, chronically ill appearing and cooperative *Routine HEENT Exam Head: Present normocephalic Eye: Present EOMI and PERRL ENT: Present mucous membranes moist *Routine Neck Exam Neck: Present supple; Absent lymphadenopathy *Routine Respiratory Exam Respiratory: Present prolonged expiratory phase; Absent rhonchi, wheezes or crackles *Routine Cardiovascular Exam Cardiovascular: Present RRR *Routine Abdominal Exam Abdominal: Present soft, normoactive bowel sounds and tenderness (Nonfocal, mild) *Routine Rectal Exam Patient deferred: visual exam *Routine Exam Patient deferred: external exam *Routine Extremities Exam Extremities: Absent cyanosis, clubbing or edema *Routine Skin Exam Skin: Present warm; Absent rash *Routine Neurological Exam Neurological: Present alert, oriented X3 and moving all extremities; Absent altered mental status Results Data Completed and Pending Labs on day of discharge: Labs from last 24 hours 08/24/24 08/24/24 06:00 00:24 WBC 2.7 L RBC 3.59 L Hgb 10.3 L Hct 31.5 L MCV 87.7 MCH 28.7 MCHC 32.7 RDW 13.7 Plt Count 120 L MPV 10.8 H Neut % (Auto) 34.7 L Lymph % (Auto) 47.8 [place] % (Auto) 14.9 H Eos % (Auto) 1.5 Baso % (Auto) 0.7 Neut # (Auto) 0.9 L* Lymph # (Auto) 1.3 [place] # (Auto) 0.4 Eos # (Auto) 0.0 Baso # (Auto) 0.0 Sodium 137 Potassium 4.0 D Chloride 109 H Carbon Dioxide 26 Anion Gap 6.0 BUN 5 L D Creatinine 0.50 L Estimated Creat Clear 27 Estimated GFR 122 Est GFR ( Amer) 147 Glucose 85 Calcium 8.5 Magnesium 1.7 D Total Bilirubin 0.2 AST 34 ALT 19 Alkaline Phosphatase 60 Total Protein 5.0 L Albumin 2.9 L Globulin 2.1 Albumin/Globulin Ratio 1.4 Stl Aeromonas (PCR) Not detected Stl C. cayetanensis PCR Not detected Stool Rotavirus (PCR) Not detected Stl Adenov F 40/41 PCR Not detected Stool Astrovirus (PCR) Not detected Stool Campylobacter PCR Not detected Stl C.difficile Tox PCR Not detected Stool Cryptosporidium PCR Not detected Stl E.coli Shiga Tox PCR Not detected Stool E coli O157 PCR Not detected Stl Enterotoxigenic E PCR Not detected Stool EPEC (PCR) Not detected Stool EAEC (PCR) Not detected Stl E. histolytica PCR Not detected Stool Giardia Lamblia PCR Not detected Stool Salmonella PCR Not detected Stool Sapovirus (PCR) Not detected Stl P. shigelloides PCR Not detected Stl Shigella/EIEC PCR Not detected St Y.enterocolitica PCR Not detected Stool Vibrio (PCR) Not detected Stl Vibrio cholerae PCR Not detected Stl Norovirus GI/GII PCR Not detected Preliminary micro results at discharge 08/22/24 22:39 Urine Culture - Preliminary Urine,Clean Catch DS: Diagnosis Discharge Diagnosis (1) Adult failure to thrive: Status: Acute Code(s): R62.7 - Adult failure to thrive (2) Gastroenteritis: Status: Acute Code(s): K52.9 - Noninfective gastroenteritis and colitis, unspecified (3) Unsteady gait: Status: Acute Code(s): R26.81 - Unsteadiness on feet (4) Weight loss: Status: Acute Code(s): R63.4 - Abnormal weight loss (5) Severe protein-calorie malnutrition: Status: Acute Code(s): E43 - Unspecified severe protein-calorie malnutrition (6) UTI (urinary tract infection): Status: Acute Code(s): N39.0 - Urinary tract infection, site not specified Meds Home Medications and Allergies Home Medications ?Medication ?Instructions ?Recorded ?Confirmed ?Type alprazolam 0.5 mg tablet 0.5 mg PO TID 08/22/24 08/22/24 History cholecalciferol (vitamin D3) 1,250 1,250 mcg PO WEEKLY 08/22/24 08/22/24 History mcg (50,000 unit) capsule hydrocodone 5 mg-acetaminophen 325 1 tab PO Q8HP PRN Pain 08/22/24 08/23/24 History mg tablet levothyroxine 50 mcg tablet 50 mcg PO DAILY 08/22/24 08/23/24 History megestrol 20 mg tablet 20 mg PO BID 08/22/24 08/22/24 History omeprazole 40 mg capsule,delayed 40 mg PO PM 08/22/24 08/23/24 History release promethazine 12.5 mg tablet 12.5 mg PO Q6HP PRN Nausea And 08/22/24 08/23/24 History Vomiting simvastatin 20 mg tablet 20 mg PO DAILY 08/22/24 08/22/24 History cefdinir 300 mg capsule 300 mg PO BID 3 days #6 caps 08/24/24 Rx famotidine 20 mg tablet 20 mg PO HS 30 days #30 tabs 08/24/24 Rx metoclopramide HCl 5 mg tablet 5 mg PO Q8H PRN nausea and 08/24/24 Rx (Reglan) vomiting #14 tabs New Prescriptions to Start Prescriptions: cefdinir Beto Lopes famotidine Beto Lopes metoclopramide HCl [Reglan] Beto Lopes Allergies Allergy/AdvReac Type Severity Reaction Status Date / Time No Known Allergies Allergy Verified 08/22/24 18:19 Discharge Plan Disposition Patient Disposition: Home, Self-Care Condition: Fair Follow up Plan Follow up with: Jennie Morris MD [Primary Care Provider] - 08/29/24 9:45 am Pieter Null MD [Staff Physician] - 09/05/24 9:30 am (EGD eval) Prescriptions/Medication Reconciliation: New famotidine 20 mg Tablet 20 mg PO HS 30 Days Qty: 30 0RF cefdinir 300 mg capsule 300 mg PO BID 3 Days Qty: 6 0RF metoclopramide HCl [Reglan] 5 mg tablet 5 mg PO Q8H PRN (Reason: nausea and vomiting) Qty: 14 0RF Continued hydrocodone-acetaminophen 5-325 mg tablet 1 tab PO Q8HP PRN (Reason: Pain) Patient Comments: TAKE 1 tablet as needed Orally every 8 hours fo pain 30 days promethazine 12.5 mg tablet 12.5 mg PO Q6HP PRN (Reason: Nausea And Vomiting) Patient Comments: take 1 tablet as needed Orally every 6 hOUrs FOR 30 days omeprazole 40 mg capsule,delayed release(DR/EC) 40 mg PO PM Patient Comments: TAKE 1 CAPSULE 30 minutes before evening meal Once a day 90 alprazolam 0.5 mg tablet 0.5 mg PO TID Patient Comments: take one tablet orally 3 times a day FOR 30 days levothyroxine 50 mcg tablet 50 mcg PO DAILY Patient Comments: TAKE ONE TABLET BY MOUTH ONCE DAILY FOR THYROID 30 simvastatin 20 mg tablet 20 mg PO DAILY Patient Comments: take one tablet every day for cholesterol Once a day po daily 30 days megestrol 20 mg tablet 20 mg PO BID Patient Comments: take one tablet twice daily to improve appetite 30 cholecalciferol (vitamin D3) 1,250 mcg (50,000 unit) capsule 1,250 mcg PO WEEKLY Patient Comments: take 1 capsule by mouth Once a week 30 Discontinued metoprolol succinate 25 mg tablet extended release 24 hr 25 mg PO HS Patient Comments: TAKE ONE TABLET ONCE DAILY AT BEDTIME 30 Problem Reconciliation Problems Reviewed?: Yes Patient Discharge Instructions ACTIVITY: Continue current activity DIET: continue same diet Patient Instructions: High-Calorie, High-Protein Diet, DI for Muscle Weakness, DI for Weight Loss, Xcvgepe-[id number]-Adult, NCM High-Calorie High-Protein Diet, WM High Calorie High Protein Diet Recipes, 5 Tips for Increasing Calories - Diet, Tips for Adding Protein - Diet Print Language: Citizen Of [place] Providers Primary Care Provider: Jennie Morris Admit Provider: Beto Lopes Attending Provider: Beto Lopes
--- NOTE | 2024-08-24 11:55 | PC.NURSE ---
notified son rex of pts dc for transportation. rex said he will call his other brother
[2024-08-25 09:55] LABS: Peripheral Smear Review Scanned Result
--- NOTE | 2024-08-28 11:04 | SW/DCPLANNER ---
Phoned patient x2. Left messages with name and call back number. Neyda Faye
== END 2024-08-24 13:50 | disposition home or self-care (01) ==
LOC: ER 18:31 → 2ND 21:10
PROVIDERS: Nurse Practitioner Family; Admitting Provider Internal Medicine Adolescent Medicine; Emergency Provider Emergency Medicine; PCP Family Medicine; Visit Provider Internal Medicine Adolescent Medicine
DX: R62.7 Adult failure to thrive (principal); K52.9 Noninfective gastroenteritis and colitis, unspecified; R26.81 Unsteadiness on feet; R63.4 Abnormal weight loss; E43 Unspecified severe protein-calorie malnutrition; N39.0 Urinary tract infection, site not specified; R63.0 Anorexia; E78.5 Hyperlipidemia, unspecified; E87.1 Hypo-osmolality and hyponatremia; R11.2 Nausea with vomiting, unspecified; G89.29 Other chronic pain; K21.9 Gastro-esophageal reflux disease without esophagitis; E03.9 Hypothyroidism, unspecified; F17.210 Nicotine dependence, cigarettes, uncomplicated; E87.6 Hypokalemia; Z68.1 Body mass index [BMI] 19.9 or less, adult; Z91.81 History of falling; Z79.890 Hormone replacement therapy; Z79.899 Other long term (current) drug therapy; Z74.1 Need for assistance with personal care; Z60.2 Problems related to living alone
CPT/HCPCS: 36415; 74021; 74176; 80053; 80061; 81001; 83605; 83690; 83735; 84100; 84443; 85007; 85025; 85027; 87086; 87506; 87636; 93005; 93306; 97163; 97165; 99285; G0378; J0696; J1650; J2405; J2765; J7030; Q0162

== ENCOUNTER 2024-09-11 09:23 | Day surgery (SDC) | payer MEDICARE, SELFPAY ==
--- NOTE | 2024-09-05 13:02 | SUR.PREOP ---
attempted to call pt for preop phone call, no answer. left voicemail with callback number
[2024-09-11] VITALS (11 sets, daily range): BP systolic 81–119; BP diastolic 52–76; PULSE 55–80; RESP 16; TEMP 36.1–36.6; O2SAT 96–100; BMI 14.9
[2024-09-11] MEDS: LACTATED RINGERS 1000ML 1,000 ML 50 ML IV (09:45)
--- NOTE | 2024-09-11 09:46 | HMH.SCOPE ---
Procedure: Date: 09/11/24 Patient Date of :: 1955 Procedure Performed:: Esophagogastroduodenoscopy with biopsy Indications:: Malnutrition/weight loss/failure to thrive Performing Provider:: Pieter Null MD Referring Provider:: . Sedation:: Monitored anesthesia care Procedure:: After informed consent was obtained the patient was taken to the endoscopy suite. Sedation ensued after the patient was transferred to the left lateral decubitus position. Pulse, blood pressure, and oxygen saturation were monitored throughout the procedure. The endoscope was advanced beyond the duodenal bulb. Retroflexion within the gastric lumen was accomplished. The gastroscope was carefully removed and the patient was transferred to recovery in stable condition. Please see findings and specimens below for detail. Findings:: Gastroesophageal junction at 36 cm Sliding hiatal hernia Mild patchy gastritis Specimens:: Antral biopsy (cold biopsy forceps) Recommendations:: Follow-up pathology Evaluation with regard to weight loss/failure to thrive deferred to patient's primary care provider Consider UGI/SBFT (will discuss at follow-up) Complications:: No immediate Estimated blood obtained (mL): 1 Colonoscopy Component Colonoscopy Component Was a colonoscopy performed during today's procedure?: No
--- NOTE | 2024-09-11 09:57 | P.PNANES_ITS ---
[facility] Disclaimer: The information contained in this section may have been updated after the patient was seen, as this information can be updated by other users. Medical History (Updated 09/11/24 @ 09:38 by Bella Bueno RN) Depression Anxiety Hypothyroid History of gastroesophageal reflux (GERD) Hyperlipidemia Hypertension FH: cholecystectomy Surgical History (Updated 09/11/24 @ 09:40 by Bella Bueno RN) History of cholecystectomy H/O: hysterectomy H/O hernia repair Family History Other No significant family history Social History Smoking Status: Current every day smoker alcohol intake: never substance use type: denies use current occupational status: retired Travel in the last 8 weeks: None [facility] Anesthesia Checklist Patient Identification Patient Identification: Arm Band Structural Data Admitted From: Home Planned Operative Procedure/s: EGD Consent for Planned Operative Procedure(s) Verified: Yes Verified Documents: Surgical Consent and History and Physical NPO Status Verified Time NPO: 00:00 Additional verifications Anesthesia Reactions: No Airway Assessment Mallampati Score:: Class II C-Spine Mobility Assessed: Yes TMJ Mobility Assessed: Yes Dentition: Edentulous Neurological Assessment Level of Consciousness: Awake, Alert and Appropriate Anesthesia Plan Anesthesia Risk discussed: Yes Anesthesia Plan: Verified ASA Class: II Anesthesia Type: MAC
== END 2024-09-11 11:40 | disposition home or self-care (01) ==
PROVIDERS: PCP Family Medicine; Visit Provider Surgery
PROC: 0DJ08ZZ Inspection of Upper Intestinal Tract, Via Natural or Artificial Opening Endoscopic (ICD-10-PCS; CPT 43239; principal; 2024-09-11 10:30)
DX: K29.70 Gastritis, unspecified, without bleeding (principal); K44.9 Diaphragmatic hernia without obstruction or gangrene; R63.4 Abnormal weight loss; R62.7 Adult failure to thrive; E43 Unspecified severe protein-calorie malnutrition; Z68.1 Body mass index [BMI] 19.9 or less, adult
CPT/HCPCS: 43239; J7120

== ENCOUNTER 2024-09-24 16:24 | Outpatient (CLI) | payer MEDICARE, SELFPAY ==
--- NOTE | 2024-09-24 | MM_ITS ---
PROCEDURE INFORMATION: Exam: MG Bilateral Screening 3D Mammography Exam date and time: 09/24/2024 4:33 PM Age: 69 years old Clinical indication: Screening examination. Her maternal aunt had breast cancer. TECHNIQUE: Imaging protocol: Bilateral Screening tomosynthesis and 2D mammography including computer-aided detection (CAD) when performed. COMPARISON: 1. MG MM DIG SCREENING MAMM BI W/CAD 05/24/2022 3:53 PM 2. MG MM DIG SCREENING MAMM BI W/CAD 05/20/2021 4:23 PM 3. MG MM DIG SCREENING MAMM BI W/CAD 05/15/2020 4:51 PM 4. MG MM DIG SCREENING MAMM BI W/CAD 05/01/2019 3:10 PM FINDINGS: MAMMOGRAPHY: Breast composition: There are scattered areas of fibroglandular density. Mass: None. Architectural distortion: None. Calcifications: No suspicious calcifications. Asymmetric density: None. Skin thickening: None. Axillary adenopathy: None. IMPRESSION: No mammographic evidence of malignancy. Annual screening is recommended unless otherwise clinically indicated. ASSESSMENT: BI-RADS Category 1: Negative.
== END 2024-09-24 23:59 | disposition home or self-care (01) ==
LOC: RAD 16:25
PROVIDERS: PCP Family Medicine; Visit Provider Nurse Practitioner
DX: Z12.31 Encounter for screening mammogram for malignant neoplasm of breast (principal)
CPT/HCPCS: 77063; 77067

== ENCOUNTER 2024-10-17 07:35 | Outpatient (CLI) | payer MEDICARE, SELFPAY ==
--- NOTE | 2024-10-17 08:00 | FL_ITS ---
FINAL REPORT CLINICAL HISTORY: weight loss 4.32 fl 1385.74 dap FINDINGS: UPPER GI WITH SMALL BOWEL FOLLOW-THROUGH HISTORY: Generalized abdominal pain. Unexplained weight loss. Fluoroscopy Time: 4 minutes 32 seconds Dose Area Product (DAP): 1385.74 Gy/m2. Number of Images: 17 images. PROCEDURE: The patient ingested barium. Effervescent crystals were also administered. Spot and overhead films were obtained. Additional barium was administered for a SBFT. FINDINGS: The esophagus is normal. There is no hiatal hernia. There is no gastroesophageal reflux. Peristalsis is normal. The rugal fold pattern of the stomach is normal. The duodenal bulb is normal. A 13 mm barium tablet passes through the esophagus and into the stomach without delay. IMPRESSION: Normal upper GI. SBFT: The warp tester film is normal. There is no evidence of obstruction. The mucosal fold pattern is normal. The terminal ileum is obscured by overlapping bowel. IMPRESSION: Normal small bowel follow-through. Reviewed, Interpreted and Dictated by Tapan Hou MD Transcribed by MNAA Guajardo Authenticated and [facility]
[2024-10-17] MEDS: BARIUM SULFATE(E-Z-AC);750ML BOTTLE 750 ML PO (08:37)
[2024-10-17] MEDS: DIATRIZOATE MEGLUMINE(GASTROGRAFIN) 66%-10% 120ML 120 ML PO (08:37)
[2024-10-17] MEDS: BARIUM SULFATE (E-Z-HD 340GM);135ML BOTTLE 135 ML PO (08:37)
[2024-10-17] MEDS: E-Z-GASII EFFERVESCENT GRANULES;1PK 1 EACH PO (08:37)
== END 2024-10-17 23:59 | disposition home or self-care (01) ==
LOC: RAD 07:36
PROVIDERS: PCP Family Medicine; Visit Provider Surgery
DX: R63.4 Abnormal weight loss (principal)
CPT/HCPCS: 74246; 74248; Q9963

== ENCOUNTER 2024-12-12 12:20 | Outpatient (CLI) | payer MEDICARE, SELFPAY ==
--- OUTSIDE RECORDS SUMMARY | 2024-12-12 12:22 | XMS_ITS | Clinical Summary ---
Author Organization Healthcare Address [address] [place] [address] Care Team Providers Care Plant Chief Name Role Phone Zack Morris MD Primary Care Provider [phone] Social History Tobacco Use Types Packs/Day Years Used Date Smoking Tobacco: Never Assessed Comments Unknown Sex and Gender Information Value Date Recorded Sex Assigned at Not on file Legal Sex Female 8:46 PM EDT Gender Identity Not on file Sexual Orientation Not on file Plan of Treatment Health Maintenance Due Date Last Done Comments [facility]-Bone Density Scan 1955 [facility]-Depression Screening 1955 [facility]-Infant/Child/Adol SDOH Screenings 1955 [facility]- SDOH Screenings 1971 [facility]-Adult SDOH Screenings 1971 [facility]-DTaP,Tdap,and Td Vaccine s (1 - Tdap) 1972 CT Colonography 1998 Colonoscopy 1998 FIT-DNA 1998 FIT 1998 FOBT 1998 Sigmoidoscopy 1998 [facility]-Colorectal Cancer Screening 1998 [facility]-Pneumococcal Vaccine: 50 + Years (1 of 1 - PCV) 2003 [facility]-Zoster Vaccines (1 of 2) 2003 [id number] Vaccine (1 - 20 24-25 season) 2024 [facility]-Influenza Vaccine (#1) 2025 [facility]-RSV Vaccine: 60+ Years o r (1 - 1-dose 75+ series) 2028 HPV Vaccines Aged Out No longer eligi ble based on patient's age to complete this topic [facility]-HIB Vaccines Aged Out No longer e ligible based on patient's age to complete this topic [facility]-Hepatitis A Vaccines Aged Out No longer eligible based on patient's age to complete this topic [facility]-IPV Vaccines Aged Out No longer e ligible based on patient's age to complete this topic [facility]-Rotavirus Vaccines Aged Out No lo nger eligible based on patient's age to complete this topic Care Teams Plant Chief Relationship Specialty Start Date End Date Zack Morris MD [address] [place] [address] #1 #1 [place] May [id number] PCP - General 10/17/20
--- NOTE | 2024-12-12 12:23 | XR_ITS ---
FINAL REPORT CLINICAL HISTORY: PAIN for 2 yrs after having covid COMPARISON: None FINDINGS: Two views of the abdomen demonstrate gas and stool throughout the colon. There is no free air. There are no abnormal calcifications. Surgical clips are seen in the right upper quadrant. IMPRESSION: Gas and stool throughout the colon. Reviewed, Interpreted and Dictated by Tapan Hou MD Transcribed by Chiara Fields Authenticated and [facility]
== END 2024-12-12 23:59 | disposition home or self-care (01) ==
LOC: RAD 12:20
PROVIDERS: PCP Family Medicine; Visit Provider Family Medicine
DX: R93.3 Abnormal findings on diagnostic imaging of other parts of digestive tract (principal); R10.9 Unspecified abdominal pain
CPT/HCPCS: 74019